=== PATIENT | female | born 1995 | race Caucasian/White ===

== ENCOUNTER 2018-12-26 00:36 | Emergency (ER) | payer SELFPAY ==
[~2018-12-26] VITALS: Ht 162.6 cm; Wt 92.1 kg
[2018-12-26 00:45] VITALS: BP 117/42
[2018-12-26] MEDS ORDERED: ACETAMINOPHEN/CODEINE 300/30MG TABLET PO ONE (01:00)
[2018-12-26] MEDS ORDERED: ACETAMINOPHEN/CODEINE 300/30MG TABLET ONE (01:04)
[2018-12-26] MEDS ORDERED: ACET-704 PO (01:07)
--- NOTE | 2018-12-26 01:07 | PHYS DOC ---
Past History Past Medical History: Asthma Past Surgical History: Tonsillectomy Additional Smoking Information: 3 per day Alcohol Use: None Drug Use: None Adult General Chief Complaint Chief Complaint: KNEE INJURY HPI HPI Patient is a 23-year-old female who presents with complaint of right knee pain after stumbling and twisting her knee earlier today. Patient states that pain is worsened with weightbearing. She rates pain at an 8 out of 10. She states that she was able to work her entire shift at work today on her feet but it was painful. She denies any other injuries besides her knee. Review of Systems Review of Systems Constitutional: Denies fever or chills [] Respiratory: Denies cough or shortness of breath [] Cardiovascular: No additional information not addressed in HPI [] Musculoskeletal: Positive right knee pain [] Current Medications Current Medications Current Medications Medications (Trade) Dose Ordered Sig/Kye Start Time Stop Time Status Last Admin Dose Admin Acetaminophen/ Codeine Phosphate (Tylenol #3) 1 tab 1X ONCE 12/26/18 01:00 12/26/18 01:01 UNV Physical Exam Physical Exam Constitutional: Well developed, well nourished, no acute distress, non-toxic appearance. [] Neck: Normal range of motion, no tenderness, supple, no stridor. [] Cardiovascular: Regular rate and rhythm[] Lungs & Thorax: Bilateral breath sounds clear to auscultation [] Extremities: Right knee demonstrates some lateral joint line tenderness. There is also tenderness to palpation on compression of the patella. No joint effusion is noted on exam. No ligamentous laxity is noted on exam. [] Current Patient Data Vital Signs Vital Signs Date Time Temp Pulse Resp B/P (MAP) Pulse Ox O2 Delivery O2 Flow Rate FiO2 12/26/18 00:45 97.9 88 20 97 Room Air EKG EKG [] Radiology/Procedures Radiology/Procedures [] Course & Med Decision Making Course & Med Decision Making Pertinent Labs and Imaging studies reviewed. (See chart for details) Patient placed in right knee immobilizer. Dragon Disclaimer Dragon Disclaimer This electronic medical record was generated, in whole or in part, using a voice recognition dictation system. Departure Departure: Impression: Primary Impression: Right knee sprain Disposition: HOME, SELF-CARE Condition: STABLE Referrals: PCP,NO (PCP) Patient Instructions: Knee Sprain Scripts Acetaminophen With Codeine (TYLENOL WITH CODEINE #3 TABLET) 1 Each Tablet 1 TAB PO Q6HRS PRN for PAIN, #10 TAB Prov: JONY GONZALEZ Jr. DO 12/26/18 Problem Qualifiers Primary Impression: Right knee sprain Encounter type: initial encounter Involved ligament of knee: unspecified ligament Qualified Codes: S83.91XA - Sprain of unspecified site of right knee , initial encounter JONY GONZALEZ Jr. DO Dec 26, 2018 01:07
== END 2018-12-26 01:11 | disposition home or self-care (01) ==
LOC: ER 00:36
DX: O9A.213 Injury, poisoning and certain other consequences of external causes complicating pregnancy, third trimester (principal); S83.91XA Sprain of unspecified site of right knee, initial encounter; O99.513 Diseases of the respiratory system complicating pregnancy, third trimester; J45.909 Unspecified asthma, uncomplicated; F17.200 Nicotine dependence, unspecified, uncomplicated; Z3A.30 30 weeks gestation of pregnancy; W18.40XA Slipping, tripping and stumbling without falling, unspecified, initial encounter; X50.1XXA Overexertion from prolonged static or awkward postures, initial encounter; Y93.89 Activity, other specified; Y92.89 Other specified places as the place of occurrence of the external cause; Y99.8 Other external cause status
CPT/HCPCS: 29505; 99283

== ENCOUNTER 2020-11-24 17:48 | Emergency (ER) | payer SELFPAY ==
[~2020-11-24] VITALS: Ht 167.6 cm; Wt 110.0 kg
[~2020-11-24 17:48] MED LIST: ACET-704 PO
--- NOTE | 2020-11-24 18:05 | PHYS DOC ---
Past History Past Medical History: Asthma Past Medical History G9, 4 miscarry 1st Trimester, 4 Vaginal deliveries 1 and 3 rd need vacuum assistance. Did have eclampsia with first and preeclampsia second . Past Surgical History: Tonsillectomy Alcohol Use: None Drug Use: None General Adult EDM: Chief Complaint: TEST HPI: HPI: "...I felt like I was having contraction s every 5 min. .. my water has not broke yet.. and no bloody show.. but it felt like I was getting ready to delivery... My future father in law did not want to drive any further .. than here.. I ve delivered before a [facility].. but that she would go to if she had..to..." Patient is a 25 year old female who presents with above hx and complaints frequent contractions and pain. Pt reports contractions every 5 min prior to arrival to ED. Discussed presentation, pending labs and tx. plan with Dr. Chacko. Advised she felt pt. not ready for delivery. Consider Vistaril 10 mg IM. If further problems present to hospital that has OB care, [facility] is where she is on-call tonight. 1800 hrs. The patient does report a normal ultrasound at 26-week emergency room earlier last year. Patient is 8, 4 miscarriages first trimester, 4 vaginal deliveries. Vaginal delivery 1 and 3 required vacuum assistance. Patient did have eclampsia with first and preeclampsia with third . Patient has not followed consistent with OB with this . Has been taking vitamins. Denies STDs. No recent travel. No sick ill contacts. Patient does not smoke. No history of trauma. Fianc return to the ER at time of pelvic exam. Patient had 4 other deliveries at [facility]. ( Pt. defer transfer to their facility- due capacity) Review of Systems: Review of Systems: Constitutional: Denies fever or chills Eyes: Denies change in visual acuity HENT: Denies nasal congestion or sore throat Respiratory: Denies cough or shortness of breath Cardiovascular: Denies chest pain or edema GI: Denies abdominal pain, nausea, vomiting, bloody stools or diarrhea : Denies dysuria Musculoskeletal: Denies back pain or joint pain Integument: Denies rash Neurologic: Denies headache, focal weakness or sensory changes Endocrine: Denies polyuria or polydipsia Lymphatic: Denies swollen glands Psychiatric: Denies depression or anxiety Family History: Family History: Noncontributory to presentation Current Medications: Current Meds: See nursing for home meds Allergies: Allergies: Allergies Coded Allergies Type Severity Reaction Last Updated Verified diphenhydramine Allergy Severe 12/26/18 Yes Physical Exam: PE: Constitutional: , no acute distress, non-toxic appearance. [] HENT: Normocephalic, atraumatic, bilateral external ears normal, oropharynx moist, no oral exudates, nose normal. Hemangioma left eyebrow Eyes: PERRLA, EOMI, conjunctiva normal, no discharge. [] Neck: Normal range of motion, no tenderness, supple, no stridor. [] Cardiovascular:Heart rate regular rhythm, no murmur [] Lungs & Thorax: Bilateral breath sounds equal at apex auscultation [] Abdomen: Bowel sounds normal, soft, no tenderness, no masses, no pulsatile masses. Obese. heart rate varies between 130 and 140. movements. No bloody show. No obvious breakage of water. Mild discharge. In Cephalic posi tion. No significant effacement or dilation noted on digital. Hard stool in rectal. Skin: Warm, dry, no erythema, no rash. Tattoos. Hemangioma on back and left eyebrow Back: No tenderness, no CVA tenderness. [] Extremities: No tenderness, no cyanosis, no clubbing, ROM intact, trace ankle edema. [] Neurologic: Alert and oriented X 3, normal motor function, normal sensory function, no focal deficits noted. DTRs +2 patella brachial. Psychologic: Affect anxious, judgement normal, mood normal. [] EKG: EKG: [] Radiology/Procedures: Radiology/Procedures: [][address] [address] IMAGING REPORT Signed PATIENT: ERIK RAYA ACCOUNT: [id number] : 1995 LOCATION: ER AGE: 25 SEX: F EXAM STATUS: REG ER ORD. PHYSICIAN: RAZA CHO MD REASON: 34 weeks gravid PAIN PRESSURE, PROCEDURE: OB LIMITED Exam: Ultrasound OB limited Indication: Pain, fracture Technique: Real-time grayscale and color Doppler images of the pelvis were obtained by the department doweler. Comparisons: None FINDINGS: There is a single live intrauterine gestation with heart rate measured at 147 bpm. Fetus is in cephalic position. measurements as follows: BPD: 9.2 cm corresponding to 37 weeks 3 days Head circumference: 32.1 cm corresponding to 36 weeks 2 days Abdominal circumference: 30.7 cm corresponding to 34 weeks 4 days Femur length: 7.3 cm corresponding to 37 weeks 3 days ROBIN measured at 11.9 cm. Placenta is anterior and appears normal. IMPRESSION: Single live intrauterine gestation with measurements as described above. Electronically signed by: Meeta Lantigua MD (11/24/2020 7:50 PM) [facility] DICTATED AND SIGNED BY: MEETA LANTIGUA MD DATE: 11/24/201947 CC: RAZA CHO MD; PCP,NO ~MTH0 0 Heart Score: Risk Factors: Risk Factors: DM, Current or recent (<one month) smoker, HTN, HLP, family history of CAD, obesity. Risk Scores: Score 0 - 3: 2.5% MACE over next 6 weeks - Discharge Home Score 4 - 6: 20.3% MACE over next 6 weeks - Admit for Clinical Observation Score 7 - 10: 72.7% MACE over next 6 weeks - Early Invasive Strategies Course & Med Decision Making: Course & Med Decision Making Pertinent Labs and Imaging studies reviewed. (See chart for details) Must make plans for follow-up at [facility] for delivery of this baby. If any further problems must present to the hospital that has OB care. For OB at [facility]. Did talk to our on-call OB at [facility] Dr. Jackson advised if further problems patient could present to the [facility] emergency department or OB. Patient to continue vitamins. Patient follow-up pending cultures. Patient to take ultrasound copy with her on follow-up of her primary care and/or OB. May take only Tylenol for pain. Keflex 500 three times a day. Must follow up pending labs. If further problems present to hospital you have selected for delivery. Impression: 1. Premature Contractions 2. Intrauterine estimate 36 weeks and 3 days (EDC = 12-19-2020) 3. heart rate 140s variability [id number] movements 4. Mother's blood type is O+ 5. Hemoglobin 10.3 6. Beta-hCG 7434 7. UTI [] Dragon Disclaimer: Dragon Disclaimer: This electronic medical record was generated, in whole or in part, using a voice recognition dictation system. Departure Departure: Referrals: PCP,NO (PCP) Scripts Cephalexin (KEFLEX) 750 Mg Capsule 500 MG PO TID for uti for 7 Days, #14 CAP Prov: RAZA CHO MD 11/24/20 Cedric Disclaimer This chart was dictated in whole or in part using Voice Recognition software in a busy, high-work load, and often noisy Emergency Department environment. It may contain unintended and wholly unrecognized errors or omissions. RAZA CHO MD Nov 24, 2020 18:05
[2020-11-24] MEDS ORDERED: IV RINGERS SOLUTION,LACTATED 1,000 ML IV SCH (18:30)
[2020-11-24] MEDS ORDERED: ONDANSETRON PF 4 MG/2 ML VIAL. IVP ONE (18:30)
[2020-11-24] MEDS ORDERED: FAMOTIDINE 20 MG/2 ML VIAL IVP ONE (18:30)
[2020-11-24] MEDS ORDERED: MAGNESIUM SULFATE 2GM 50 ML IV ONE (18:30)
[2020-11-24 19:08] LABS: CALCIUM 8.1 mg/dL (8.5-10.1); CREATININE 0.5 mg/dL (0.6-1.0); GFR 149.1; POTASSIUM 3.8 mmol/L (3.5-5.1)
[2020-11-24 19:10] LABS: BASO % 0 % (0-3); EOS # 0.2 x10^3/uL (0.0-0.7); EOS % 2 % (0-3); HEMOGLOBIN 10.3 g/dL (12.0-15.5); LYMPH # 2.1 x10^3/uL (1.0-4.8); LYMPH % 23 % (24-48); MEAN CORPUSCULAR HEMOGLOBIN 27 pg (25-35); MEAN CORPUSCULAR HGB CONC 32 g/dL (31-37); MEAN CORPUSCULAR VOLUME 85 fL (79-100); MONO # 0.6 x10^3/uL (0.0-1.1); MONO % 6 % (0-9); NEUT # 6.3 x10^3uL (1.8-7.7); NEUT % 69 % (31-73); PLATELET COUNT 170 x10^3/uL (140-400); RED BLOOD COUNT 3.77 x10^6/uL (3.50-5.40); RED CELL DISTRIBUTION WIDTH 14.5 % (11.5-14.5); WHITE BLOOD COUNT 9.2 x10^3/uL (4.0-11.0)
[2020-11-24 19:19] LABS: ALBUMIN 2.4 g/dL (3.4-5.0); DIRECT BILIRUBIN 0.1 mg/dL (0.0-0.2); TOTAL BILIRUBIN 0.3 mg/dL (0.2-1.0); TOTAL PROTEIN 6.5 g/dL (6.4-8.2)
--- NOTE | 2020-11-24 19:52 | RAD ---
Exam: Ultrasound OB limited Indication: Pain, fracture Technique: Real-time grayscale and color Doppler images of the pelvis were obtained by the department crisis specialist. Comparisons: None FINDINGS: There is a single live intrauterine gestation with heart rate measured at 147 bpm. Fetus is in cephalic position. measurements as follows: BPD: 9.2 cm corresponding to 37 weeks 3 days Head circumference: 32.1 cm corresponding to 36 weeks 2 days Abdominal circumference: 30.7 cm corresponding to 34 weeks 4 days Femur length: 7.3 cm corresponding to 37 weeks 3 days ROBIN measured at 11.9 cm. Placenta is anterior and appears normal. IMPRESSION: Single live intrauterine gestation with measurements as described above. Electronically signed by: Meeta Lopes MD (11/24/2020 7:50 PM) JEFRY
[2020-11-24 21:04] LABS: BARBITURATES NEG (NEG); BENZODIAZEPINES NEG (NEG); CANNABINOIDS NEG (NEG); COCAINE NEG (NEG); METHADONE NEG (NEG); OPIATES NEG (NEG); PHENCYCLIDINE NEG (NEG)
[2020-11-24 21:06] LABS: AMPHETAMINE/METHAMPHETAMINE NEG (NEG)
[2020-11-24 21:11] LABS: BILIRUBIN,URINE NEG (NEG); CLARITY,URINE CLEAR; COLOR,URINE AMBER; GLUCOSE,URINE NEG (NEG)
[2020-11-24 21:12] LABS: BACTERIA,URINE 0 /HPF (0-FEW); NITRITE,URINE NEG (NEG); SQUAMOUS EPITHELIAL CELL,UR MANY /LPF
[2020-11-24] MEDS ORDERED: CEPH750C9 PO (21:19)
[2020-11-24 21:30] VITALS: BP 122/68
[2020-11-24] MEDS ORDERED: CEPHALEXIN 250 MG CAPSULE PO ONE (21:30)
[2020-11-26 19:11] LABS: CHLAMYDIA PROBE Negative (Negative)
== END 2020-11-24 21:50 | disposition home or self-care (01) ==
LOC: ER 17:48
DX: O60.03 Preterm labor without delivery, third trimester (principal); O23.43 Unspecified infection of urinary tract in pregnancy, third trimester; O99.513 Diseases of the respiratory system complicating pregnancy, third trimester; J45.909 Unspecified asthma, uncomplicated; Z3A.36 36 weeks gestation of pregnancy; Z88.8 Allergy status to other drugs, medicaments and biological substances
CPT/HCPCS: 36415; 76815; 80048; 80076; 80307; 81001; 82550; 83690; 83735; 84443; 84484; 84702; 85025; 86592; 86703; 86705; 86709; 86803; 86900; 86901; 87086; 87340; 87491; 87591; 96361; 96365; 96366; 96375; 99284; J2405; J3475; J3490; J7120; Q0111

== ENCOUNTER 2022-03-01 17:23 | Emergency (ER) | payer SELFPAY ==
[~2022-03-01] VITALS: Ht 162.6 cm; Wt 181.8 kg
[~2022-03-01 17:23] MED LIST changes: +CEPH750C9 PO
--- NOTE | 2022-03-01 18:20 | PHYS DOC ---
Past History Past Medical History: Asthma Additional Past Medical Histor: PANIC ATTACKS Past Surgical History: , Tonsillectomy Alcohol Use: None Drug Use: None General Adult EDM: Chief Complaint: CHEST PAIN HPI: HPI: Patient is a 26-year-old female presents with chest pain. Patient states that pain started on Wednesday while she was cooking. Pain is underneath her right breast. Denies radiation of pain. Denies nausea and vomiting. Patient states that she did have a panic attack prior to the pain starting. Denies taking anything at home for pain. Patient has had history of anxiety and depression. Review of Systems: Review of Systems: ROS At least 10 ROS systems have been reviewed and are negative except as documented in the HPI. General: Negative except as outlined in HPI above. Skin: Negative except as outlined in HPI above. HEENT: Negative except as outlined in HPI above. Neck: Negative except as outlined in HPI above. Respiratory: Negative except as outlined in HPI above.. Cardiovascular: Negative except as outlined in HPI above. Abdomen: Negative except as outlined in HPI above. : Negative except as outlined in HPI above. Back/MSK: Negative except as outlined in HPI above. Neuro: Negative except as outlined in HPI above. Psych: Negative except as outlined in HPI above. Allergies: Allergies: Allergies Coded Allergies Type Severity Reaction Last Updated Verified diphenhydramine Allergy Severe 03/01/22 Yes latex Allergy Intermediate Unknown 03/01/22 Yes Physical Exam: PE: Constitutional: Well developed, well nourished, no acute distress, non-toxic appearance. [] HENT: Normocephalic, atraumatic, bilateral external ears normal, oropharynx moist, no oral exudates, nose normal. [] Eyes: conjunctiva normal, no discharge. [] Neck: Normal range of motion, no tenderness, supple, no stridor. [] Cardiovascular:Heart rate regular rhythm, no murmur [] Lungs & Thorax: Bilateral breath sounds clear to auscultation, no wheezing Abdomen: Bowel sounds normal, soft, no tenderness, no masses Skin: Warm, dry, no erythema, no rash. [] Back: No tenderness, no CVA tenderness. [] Extremities: No tenderness, no cyanosis, no clubbing, ROM intact, no edema. [] Neurologic: Alert and oriented X 3, normal motor function, normal sensory function, no focal deficits noted. [] Psychologic: Affect normal, judgement normal, anxious mood Current Patient Data: Vital Signs: Vital Signs Date Time Temp Pulse Resp B/P (MAP) Pulse Ox O2 Delivery O2 Flow Rate FiO2 03/01/22 17:34 98.4 72 20 110/53 (72) 98 Room Air EKG: EKG: Rate [address] No ST elevation or depression. Read by Dr. Morris. [] Radiology/Procedures: Radiology/Procedures: [] Heart Score: C/O Chest Pain: No HEART Score for Chest Pain: HEART Score for Chest Pain Response (Comments) Value History Slighlty/Non-Suspicious 0 ECG Normal 0 Age < 45 0 Risk Factors No Risk Factors 0 Troponin < Normal Limit 0 Total 0 Risk Factors: Risk Factors: DM, Current or recent (<one month) smoker, HTN, HLP, family history of CAD, obesity. Risk Scores: Score 0 - 3: 2.5% MACE over next 6 weeks - Discharge Home Score 4 - 6: 20.3% MACE over next 6 weeks - Admit for Clinical Observation Score 7 - 10: 72.7% MACE over next 6 weeks - Early Invasive Strategies Course & Med Decision Making: Course & Med Decision Making Pertinent Labs and Imaging studies reviewed. (See chart for details) [] 26-year-old male presents with chest pain. Pain started on Wednesday underneath her right breast. No radiation. No shortness of breath, nausea, vomiting. Work-up in ER consisted of CBC, CMP, troponin, urinalysis, urine . Patient refusing anything for pain at this time. All labs unremarkable. Troponins negative. Chest x-ray is unremarkable. Heart score 0. Patient still reporting pain. Patient given Toradol IV. Sending patient home with instructions to follow-up with PCP. Patient should take ibuprofen as well for pain. Discussed return precautions in length. Patient verbalized understanding of discharge instructions. Patient is appreciative and okay with discharge plan. Cedric Disclaimer: Cedric Disclaimer: This electronic medical record was generated, in whole or in part, using a voice recognition dictation system. Departure Departure: Impression: Primary Impression: Chest wall pain Disposition: HOME / SELF CARE / HOMELESS Condition: STABLE Referrals: PCP,NO (PCP) Patient Instructions: Chest Wall Pain, [id number] Additional Instructions: You are seen in the emergency room for chest pain. All of your labs are unrema rkable. Your x-ray of your chest was also unremarkable. You were given IM Toradol to help with discomfort. Make sure you continue taking ibuprofen at home for pain. Please call your PCP and make a follow-up appointment for further management. You return to emergency room if you have worsening symptoms or concerns such as shortness of breath, chest pain. EMERGENCY DEPARTMENT GENERAL DISCHARGE INSTRUCTIONS Thank you for coming to [facility] (ED) today and trusting us with you care. We trust that you had a positivie experience in our Emergency Department. If you wish to speak to the department management, you may call the director at [phone]. YOUR FOLLOW UP INSTRUCTIONS ARE FOLLOWS: 1. Do you have a private Doctor? If you do not have a private doctor, please ask for a resource list of physicians or clinics that may be able to assist you with follow up care. 2. The Emergency Physician has interpreted your x-rays. The X-Ray specialist will also review them. If there is a change in the findings, you will be notified in 48 hours when at all possible. 3. A lab test or culture has been done, your results will be reviewed and you will be notified if you need a change in treatment. ADDITIONAL INSTRUCTIONS AND INFORMATION: 1. Your care today has been supervised by a physician who is specially trained in emergency care. Many problems require more than one evaluation for a complete diagnosis and treatment. We recommend that you schedule your follow up appointment as recommended to ensure complete treatment of you illness or injury. If you are unable to obtain follow up care and continue to have a problem, or if your condition worsens, we recommend that you return to the ED. 2. We are not able to safely determine your condition over the phone nor are we able to give sound medical advice over the phone. For these safety reasons, if you call for medical advice we will ask you to come to the ED for further evaluation. 3. If you have any questions regarding these discharge instructions please call the ED at [phone]. SAFETY INFORMATION: In the interest of safety, wellness, and injury prevention; we encourage you to wear your sealbelt, if you smoke; quite smoking, and we encourage family to use a protec tive helmet for bicycling and other sporting events that present an increased risk for head injury. IF YOUR SYMPTOMS WORSEN OR NEW SYMPTOMS DEVELOP, OR YOU HAVE CONCERNS ABOUT YOUR CONDITION; OR IF YOUR CONDITION WORSENS WHILE YOU ARE WAITING FOR YOUR FOLLOW UP APPOINTMENT; EITHER CONTACT YOUR PRIMARY CARE DOCTOR, THE PHYSICIAN WHOSE NAME AND NUMBER YOU WERE GIVEN, OR RETURN TO THE ED IMMEDIATELY. KIYA MESA APRN March 01, 2022 18:20
[2022-03-01 18:46] LABS: BASO # 0.1 x10^3/uL (0.0-0.2); BASO % 1 % (0-3); EOS # 0.3 x10^3/uL (0.0-0.7); EOS % 3 % (0-3); HEMATOCRIT 38.3 % (36.0-47.0); HEMOGLOBIN 12.6 g/dL (12.0-15.5); LYMPH # 2.8 x10^3/uL (1.0-4.8); LYMPH % 28 % (24-48); MEAN CORPUSCULAR HEMOGLOBIN 29 pg (25-35); MEAN CORPUSCULAR HGB CONC 33 g/dL (31-37); MEAN CORPUSCULAR VOLUME 87 fL (79-100); MONO # 0.4 x10^3/uL (0.0-1.1); MONO % 4 % (0-9); NEUT # 6.5 x10^3uL (1.8-7.7); NEUT % 64 % (31-73); PLATELET COUNT 281 x10^3/uL (140-400); RED BLOOD COUNT 4.43 x10^6/uL (3.50-5.40); RED CELL DISTRIBUTION WIDTH 14.4 % (11.5-14.5); WHITE BLOOD COUNT 10.1 x10^3/uL (4.0-11.0)
[2022-03-01 19:02] LABS: CALCIUM 9.1 mg/dL (8.5-10.1); CREATININE 0.7 mg/dL (0.6-1.0); GFR 100.4; POTASSIUM 4.1 mmol/L (3.5-5.1)
--- NOTE | 2022-03-01 19:20 | RAD ---
Exam: Chest 2 views INDICATION: Chest pain, left lower rib pain TECHNIQUE: Frontal and lateral views the chest Comparisons: None FINDINGS: The cardiomediastinal silhouette and pulmonary vessels are within normal limits. The lung and pleural spaces are clear. IMPRESSION: No acute cardiopulmonary process. Electronically signed by: Meeta Lopes MD (03/01/2022 7:17 PM) JEFRY
[2022-03-01] MEDS ORDERED: KETOROLAC 15 MG/ML VIAL. IVP ONE (20:00)
[2022-03-01 20:07] LABS: CLARITY,URINE HAZY; COLOR,URINE YELLOW
[2022-03-01 20:08] LABS: BACTERIA,URINE 0 /HPF (0-FEW); GLUCOSE,URINE NEG (NEG); NITRITE,URINE NEG (NEG); SQUAMOUS EPITHELIAL CELL,UR MANY /LPF; UROBILINOGEN,URINE 0.2 mg/dL (0.2 mg/dL); WBC,URINE 0 /HPF (0-4)
[2022-03-01 20:27] VITALS: BP 138/58
--- NOTE | 2022-03-01 21:11 | EKG ---
[facility] ED [facility] [address] [place] [id number] Test Date: 2022-03-01 Test Time: 17:35:40 Pat Name: ERIK RAYA Department: Room: Gender: F Nursery Attendant: : 1995 Requested By: KIYA MESA Order Number: [id number] Reading MD: Measurements Intervals [place] Rate: 72 P: 0 [place]: 152 QRS: 58 QRSD: 92 T: 47 QT: 360 QTc: 396 Interpretive Statements SINUS ARRHYTHMIA OTHERWISE NORMAL ECG RI6.02 No previous ECG available for comparison
== END 2022-03-01 20:32 | disposition home or self-care (01) ==
LOC: ER 17:23
DX: R07.89 Other chest pain (principal); J45.909 Unspecified asthma, uncomplicated; Z91.040 Latex allergy status; Z88.8 Allergy status to other drugs, medicaments and biological substances
CPT/HCPCS: 36415; 71046; 80048; 81001; 81025; 84484; 85025; 93005; 96374; 99285; J1885